=== PATIENT | male | born 1980 | race Caucasian/White ===

== ENCOUNTER 2018-04-10 18:20 | Emergency (ER) | payer OTHER ==
[~2018-04-10] VITALS: Ht 182.9 cm; Wt 102.9 kg
[~2018-04-10 18:20] MED LIST: ADVIL,NUPRIN,M200 MG PO; TYLENOL REGULA325 MG PO; ZITHROMAX Z-PA250 MG PO
[2018-04-10 19:48] VITALS: BP 178/99
== END 2018-04-10 19:50 | disposition home or self-care (01) ==
LOC: EME 18:20
DX: S80.12XA Contusion of left lower leg, initial encounter (principal); S83.92XA Sprain of unspecified site of left knee, initial encounter; R60.0 Localized edema; X58.XXXA Exposure to other specified factors, initial encounter
CPT/HCPCS: 73564; 73590; 93971; 99281; 99284